=== PATIENT | female | born 1950 | race Caucasian/White ===

== ENCOUNTER → 2017-09-13 | Outpatient (CLI) | payer MEDICARE, OTHER ==
[~2017-09-13] MED LIST: AMBIEN 10MG10 MG PO; AMBIEN 5MG TABLE5 MG PO; ATIVAN 1MG T1 MG/TAB PO; CARAFATE1 GM PO; DESYREL 100MG100 MG PO; ELAVIL50 MG PO; FLEXERIL10 MG PO; FLONASE NASAL S16 GM NS; FOSAMAX; LORAZEPAM0.5 MG PO; MOBIC7.5 M1 PO; MOTRIN 800800 MG/TAB PO; NORCO 325 MG-51 TAB PO; PERCOCET 325 MG1 TA2 PO; PROZAC 20MG20 MG PO; PROZAC40 MG PO; SYNTHROID0.075 MG/T PO; SYNTHROID0.1 MG PO; WELLBUTRIN XL150 MG PO
== END ==
LOC: COL.RAD 10:23
DX: G31.89 Other specified degenerative diseases of nervous system (principal); I67.82 Cerebral ischemia; Z86.73 Personal history of transient ischemic attack (TIA), and cerebral infarction without residual deficits

== ENCOUNTER → 2018-06-07 | Outpatient (CLI) | payer MEDICARE, OTHER | LOC: COL.RAD 12:18 | DX: M41.84 Other forms of scoliosis, thoracic region (principal); M47.815 Spondylosis without myelopathy or radiculopathy, thoracolumbar region ==

== ENCOUNTER 2018-06-26 03:17 | Observation (INO) | payer MEDICARE, OTHER ==
[~2018-06-26] VITALS: Ht 165.1 cm; Wt 63.6 kg
[2018-06-26 03:39] LABS: BASO % 0.3 % (0.0-2.0); EOS # 0.2 (0.0-0.7); GRAN # 11.8 (1.4-6.5); GRAN % 78.3 % (42.2-75.2); HEMATOCRIT 38.3 % (37.0-47.0); HEMOGLOBIN 12.5 g/dl (12.5-16.0); LYMPH % 13.2 % (20.0-51.0); MEAN CELL VOLUME 93 fl (80.0-100.0); MEAN CORPUSCULAR HEMOGLOBIN 31 pg (27.0-31.0); MEAN CORPUSCULAR HGB CONC 33 g/dl (33.0-37.0); MONO # 0.9 (0.1-0.6); MONO % 6.1 % (1.7-9.3); PLATELET COUNT 252 K/mm3 (130-400); REDCELL DISTRIBUTION WIDTH-CV 12.9 % (11.5-14.5)
[2018-06-26 03:43] LABS: INR 0.9 (0.8-3.0)
[2018-06-26 03:49] LABS: ALANINE AMINOTRANSFERASE 30 U/L (9-52); ALKALINE PHOSPHATASE 42 U/L (50-136); ANION GAP 4 mmol/L (7-16); AST,SGOT 24 U/L (15-37); BILIRUBIN,TOTAL 0.3 mg/dL (0.0-1.0); BLOOD UREA NITROGEN 16 mg/dL (7-17); CARBON DIOXIDE 32 mmol/L (22-30); CHLORIDE 103 mmol/L (98-107); CREATININE, serum 0.67 mg/dL (0.52-1.25); GLUCOSE 103 mg/dL (74-106); POTASSIUM 4.4 mmol/L (3.4-5.0); SODIUM 139 mmol/L (137-145); TOTAL PROTEIN 7.2 gm/dL (6.4-8.2)
[2018-06-26] MEDS ORDERED: ZOCOR 20MG20 MG PO (03:59)
[2018-06-26] MEDS ORDERED: CORGARD20 MG PO (04:00)
[2018-06-26] MEDS ORDERED: LEXAPRO 10MG10 MG PO (04:00)
[2018-06-26 04:01] LABS: TROPONIN-I < 0.012 ng/mL (0.000-0.034)
[2018-06-26 05:48] LABS: CHOLESTEROL RISK RATIO 2.9
[2018-06-26 06:19] LABS: TSH w REFLEX 4.54 uIU/mL (0.465-4.680)
[2018-06-26 06:40] VITALS: BP 114/43; PULSE 62; TEMP 99.1
[2018-06-26] MEDS ORDERED: PRINIVIL10 MG PO (10:29)
[2018-06-26] MEDS ORDERED: NAMENDA 10MG TA10 MG PO (10:30)
[2018-06-26 11:15] VITALS: BP 121/45; PULSE 61; TEMP 98.7
[2018-06-26 11:26] LABS: TSH w REFLEX 4.87 uIU/mL (0.465-4.680)
[2018-06-26 13:15] LABS: PH 7 (5-8); SQUAMOUS EPITHELIAL 0-2 /hpf; URINE APPEARANCE Clear; URINE BACTERIA None Seen /hpf; URINE BILIRUBIN Negative (NEGATIVE); URINE BLOOD Negative (NEGATIVE); URINE COLOR Yellow; URINE GLUCOSE Negative (NEGATIVE); URINE KETONE Negative (NEGATIVE); URINE LEUKOCYTE ESTERASE Trace (NEGATIVE); URINE NITRATE Negative (NEGATIVE); URINE PROTEIN(semi-quant) Negative (NEGATIVE); URINE RBC 0-2 /hpf; URINE UROBILINOGEN Negative (NEGATIVE)
[2018-06-26 13:17] LABS: COLLECTION METHOD CLEAN CATCH
[2018-06-26 15:57] VITALS: BP 135/40; PULSE 59; TEMP 98.4
[2018-06-26 20:12] VITALS: BP 135/42; PULSE 57; TEMP 98.1
[2018-06-27] VITALS (7 sets, daily range): BP systolic 111–135; BP diastolic 48–65; PULSE 56–76; TEMP 98.1–98.2
[2018-06-27 06:17] LABS: BASO % 0.4 % (0.0-2.0); EOS # 0.1 (0.0-0.7); EOS % 1.5 % (0-4.0); GRAN % 53.5 % (42.2-75.2); HEMOGLOBIN 11.5 g/dl (12.5-16.0); LYMPH # 1.9 (1.2-3.4); MEAN CELL VOLUME 94 fl (80.0-100.0); MEAN CORPUSCULAR HEMOGLOBIN 31 pg (27.0-31.0); MEAN CORPUSCULAR HGB CONC 33 g/dl (33.0-37.0); MEAN PLATELET VOLUME 10.2 fl (7.4-10.4); MONO # 0.5 (0.1-0.6); MONO % 8.3 % (1.7-9.3); PLATELET COUNT 211 K/mm3 (130-400); RED BLOOD COUNT 3.74 M/mm3 (4.10-5.30); REDCELL DISTRIBUTION WIDTH-CV 12.8 % (11.5-14.5)
[2018-06-27 06:26] LABS: CALCIUM 8.5 mg/dL (8.4-10.2); CREATININE, serum 0.61 mg/dL (0.52-1.25)
[2018-06-27] MEDS ORDERED: ZOCOR 20MG20 MG PO (09:57)
[2018-06-27] MEDS ORDERED: ASPIRIN E.C. 8181 MG PO (09:58)
== END 2018-06-27 10:54 | disposition home or self-care (01) ==
LOC: COL.ER 03:17 → MEDICAL 04:44
PROVIDERS: Emergency Medicine; Nurse Practitioner; Physician Assistant
DX: R07.9 Chest pain, unspecified (principal); I10 Essential (primary) hypertension; D72.829 Elevated white blood cell count, unspecified; Z66 Do not resuscitate; R09.89 Other specified symptoms and signs involving the circulatory and respiratory systems; Z82.49 Family history of ischemic heart disease and other diseases of the circulatory system; E78.5 Hyperlipidemia, unspecified; I07.1 Rheumatic tricuspid insufficiency; E03.9 Hypothyroidism, unspecified; Z86.73 Personal history of transient ischemic attack (TIA), and cerebral infarction without residual deficits; Z79.899 Other long term (current) drug therapy; Z87.891 Personal history of nicotine dependence; Z79.82 Long term (current) use of aspirin; Z23 Encounter for immunization
CPT/HCPCS: A9502; G0008; G0378; J1650; J2270; J2765; J2785; Q9967

== ENCOUNTER 2019-05-10 12:30 | Outpatient (RCR) | payer MEDICARE, OTHER | END 2019-07-22 | disposition home or self-care (01) | LOC: WSST | DX: R13.10 Dysphagia, unspecified (principal); R25.1 Tremor, unspecified ==

== ENCOUNTER → 2019-05-10 | Outpatient (CLI) | payer MEDICARE, OTHER ==
[~2019-05-10] MED LIST changes: +ASPIRIN E.C. 8181 MG PO; +CORGARD20 MG PO; +LEXAPRO 10MG10 MG PO; +NAMENDA 10MG TA10 MG PO; +PRINIVIL10 MG PO; +ZOCOR 20MG20 MG PO
== END ==
LOC: COL.RAD 12:25
DX: G20 Parkinson's disease (principal); R13.10 Dysphagia, unspecified

== ENCOUNTER → 2020-07-31 | Outpatient (CLI) | payer MEDICARE, OTHER | LOC: COL.LAB 08:00 → COL.CAR 08-05 08:30 → EDSTATUS 08-06 09:15 | DX: U07.1 COVID-19 (principal) ==

== ENCOUNTER 2020-10-07 10:11 | Day surgery (SDC) | payer MEDICARE, OTHER ==
[~2020-10-07] VITALS: Ht 165.1 cm; Wt 72.8 kg
[2020-10-07] VITALS (14 sets, daily range): BP systolic 114–145; BP diastolic 66–83; PULSE 78–100; TEMP 98
[2020-10-07 11:04] LABS: HEMOGLOBIN 13.4 g/dl (12.5-16.0); MEAN CELL VOLUME 94 fl (80.0-100.0); MEAN CORPUSCULAR HEMOGLOBIN 32 pg (27.0-31.0); MEAN CORPUSCULAR HGB CONC 34 g/dl (33.0-37.0); MEAN PLATELET VOLUME 9.4 fl (7.4-10.4); PLATELET COUNT 260 K/mm3 (130-400); RED BLOOD COUNT 4.24 M/mm3 (4.10-5.30); REDCELL DISTRIBUTION WIDTH-CV 13.8 % (11.5-14.5)
[2020-10-07 11:13] LABS: CALCIUM 9.5 mg/dL (8.4-10.2); CREATININE, serum 0.75 (0.52-1.25); POTASSIUM 4.4 mmol/L (3.4-5.0)
[2020-10-07] MEDS ORDERED: LEXAPRO20 MG PO (11:13)
[2020-10-07] MEDS ORDERED: ZOCOR 40MG40 MG PO (11:13)
[2020-10-07] MEDS ORDERED: AMBIEN 5MG TABLE5 MG PO (11:14)
[2020-10-07] MEDS ORDERED: WELLBUTRIN XL300 M1 PO (11:14)
[2020-10-07 11:15] LABS: PROTHROMBIN TIME 10.6 SECONDS (9.7-12.8)
[2020-10-07] MEDS ORDERED: ZESTRIL 20MG TA20 MG PO (11:15)
[2020-10-07 11:18] LABS: PARTIAL THROMBOPLASTIN TIME 30.3 SECONDS (26.0-37.0)
--- NOTE | 2020-10-07 13:30 | NUR ---
Rt groin venous access site remains slightly firm to palpation but no clear outline palpable. Assessment remains unchanged from pt's arrival back to [facility]. Rt pedal pulse remains strong. Dressing to rt groin remains clean, dry and intact.
--- NOTE | 2020-10-07 14:11 | NUR ---
Rt groin site remains unchanged with no additional hematoma formation, and dressing is clean, dry and intact.
--- NOTE | 2020-10-07 14:30 | NUR ---
Rt groin now firm to palpation with increased bruising noted to medial thigh and pt c/o increased pain to leg. Manual pressure applied. Lamberto, oil field laborer RN called to evaluate. Distal pulses remain strong.
--- NOTE | 2020-10-07 14:50 | NUR ---
Rt groin site becomes slightly less firm with manual pressure. Dr Alberto was notified by phone and orders for femstop application x2 hr were given. Device applied by BEBO Orantes with assistance of this nurse. Pedal pulses remain strong.
--- NOTE | 2020-10-07 14:56 | NUR ---
Report from Thomas Simmons.pt has femstop in place at 40.
--- NOTE | 2020-10-07 16:33 | NUR ---
Radial compression band removed,site observed clean,dry,and soft to tocuh.Gauze applied wrapped with coban.Will continue to monitor.
--- NOTE | 2020-10-07 16:58 | NUR ---
femstop pressure released at this time.Will continue to monitor.
--- NOTE | 2020-10-07 17:08 | NUR ---
Report to Thomas Rodriguez.
--- NOTE | 2020-10-07 18:45 | NUR ---
PT TO EXIT VIA WHEELCHAIR AT THIS TIME. PT CARE WAS ASSUMED BY THIS RN AT 1700 AT WHICH TIME FEM STOP TO RT FEM PUNCTURE WAS DEFLATED. PLAN TO MONITOR SITE FOR AT LEAST 1 HOUR FOR BLEEDING THEN DISCHARGE. RT WRIST SITE LOOKS GOOD, DRESSING CLEAN DRY AND INTACT. PT HAS BEEN UP AND AMBULATORY WITH STEADY GAIT, HAS BEEN ABLE TO VOID. PT C/O DISCOMFORT TO RT GROIN, BUT AREA REMAINS SOFT WITHOUT HEMATOMA. I REVIEWED DC INSTRUCTIONS R/T CARDIAC CATH AND MODERATE SEDATION WITH PT, AND REVIEWED F/U INSTRUCTIONS FROM DR. QUILES. PT VERBALIZED UNDERSTANDING. IV WAS DC'D WITH CATH INTACT. PT DENIED CONCERNS AT TIME OF DEPARTURE.
== END 2020-10-07 20:46 | disposition home or self-care (01) ==
LOC: COL.CAR 10:11
PROVIDERS: Internal Medicine Cardiovascular Disease
DX: I25.10 Atherosclerotic heart disease of native coronary artery without angina pectoris (principal); U07.1 COVID-19; E03.9 Hypothyroidism, unspecified; F41.9 Anxiety disorder, unspecified; F32.9 Major depressive disorder, single episode, unspecified; M19.90 Unspecified osteoarthritis, unspecified site; I10 Essential (primary) hypertension; G20 Parkinson's disease; Z86.73 Personal history of transient ischemic attack (TIA), and cerebral infarction without residual deficits; M79.7 Fibromyalgia; M81.0 Age-related osteoporosis without current pathological fracture; Z87.891 Personal history of nicotine dependence; Z79.82 Long term (current) use of aspirin
CPT/HCPCS: J1644; J2250; J3010; Q9967

== ENCOUNTER → 2021-02-10 | Outpatient (CLI) | payer MEDICARE, OTHER ==
[~2021-02-10] MED LIST changes: +LEXAPRO20 MG PO; +WELLBUTRIN XL300 M1 PO; +ZESTRIL 20MG TA20 MG PO; +ZOCOR 40MG40 MG PO
== END ==
LOC: COL.PUL 12:58
DX: R06.02 Shortness of breath (principal)

== ENCOUNTER → 2021-04-24 | Outpatient (CLI) | payer MEDICARE, OTHER | LOC: COL.PUL 12:44 | DX: R06.02 Shortness of breath (principal) | CPT/HCPCS: J7674 ==

== ENCOUNTER → 2021-12-02 | Outpatient (CLI) | payer MEDICARE, OTHER | LOC: COL.RAD 09:29 | DX: R91.1 Solitary pulmonary nodule (principal); J98.4 Other disorders of lung; K46.9 Unspecified abdominal hernia without obstruction or gangrene; K83.9 Disease of biliary tract, unspecified; S22.41XD Multiple fractures of ribs, right side, subsequent encounter for fracture with routine healing; Z90.49 Acquired absence of other specified parts of digestive tract ==

== ENCOUNTER 2023-10-12 11:47 | Inpatient (IN) | payer MEDICARE, OTHER ==
[~2023-10-12] VITALS: Ht 165.1 cm; Wt 59.5 kg
[~2023-10-12 11:47] MED LIST changes: +ROXICODONE 55 MG/TAB PO
[2023-10-12] MEDS ORDERED: NS 1,000 ML IV ONE ×2 (12:30→13:30)
[2023-10-12 12:39] LABS: BASO % 0.5 % (0.0-2.0); EOS # 0.1 K/mm3 (0.0-0.7); EOS % 0.8 % (0.0-4.0); GRAN # 5.7 K/mm3 (1.4-6.5); GRAN % 76.6 % (42.2-75.2); HEMATOCRIT 39.1 % (37.0-47.0); LYMPH # 1.2 K/mm3 (1.2-3.4); LYMPH % 15.7 % (20.0-51.0); MEAN CELL VOLUME 95 fl (80.0-100.0); MEAN CORPUSCULAR HEMOGLOBIN 32 pg (27-31); MEAN CORPUSCULAR HGB CONC 33 g/dl (33.0-37.0); MEAN PLATELET VOLUME 9.4 fl (7.4-10.4); MONO # 0.4 K/mm3 (0.1-0.6); MONO % 5.2 % (1.7-9.3); PLATELET COUNT 346 K/mm3 (130-400); REDCELL DISTRIBUTION WIDTH-CV 17.7 % (11.5-14.5)
[2023-10-12 12:55] LABS: ALBUMIN 3.4 gm/dL (3.4-4.8); BILIRUBIN,TOTAL 0.4 mg/dL (0.2-1.2); CALCIUM 8.9 mg/dL (8.4-10.2); CREATININE, serum 0.75 mg/dL (0.57-1.11); POTASSIUM 3.8 mmol/L (3.5-4.5); TOTAL PROTEIN 6.8 gm/dL (6.2-8.1)
[2023-10-12] MEDS ORDERED: ATIVAN 1MG T1 MG/TAB PO (13:24)
[2023-10-12 13:26] LABS: PH 6.5 (5.0-8.5); URINE APPEARANCE CLEAR (CLEAR/HAZY); URINE BLOOD NEGATIVE (NEGATIVE); URINE COLOR YELLOW (YELLOW); URINE GLUCOSE NEGATIVE (NEGATIVE); URINE KETONE NEGATIVE (NEGATIVE); URINE NITRATE NEGATIVE (NEGATIVE); URINE PROTEIN(semi-quant) NEGATIVE (NEGATIVE); URINE UROBILINOGEN 0.2 E.U/dL (0.2-1.0)
[2023-10-12] MEDS ORDERED: SYNTHROID0.05 MG/TA PO (13:27)
[2023-10-12] MEDS ORDERED: cefTRIAXone 2 G in Water For Injection,Sterile 20 ML IV ONE (13:30)
[2023-10-12] MEDS ORDERED: *Potassium Replacement Protocol MC SCH (13:45)
[2023-10-12 13:47] LABS: COLLECTION METHOD CLEAN CATCH
[2023-10-12] MEDS ORDERED: NS 1,000 ML IV SCH (15:00)
[2023-10-12 15:01] VITALS: BP 171/91; PULSE 78; TEMP 97.6
[2023-10-12 17:32] VITALS: BP_SYST 171
[2023-10-12 19:28] VITALS: BP 148/82; PULSE 85; TEMP 98.4
[2023-10-12 20:30] VITALS: BP_SYST 148
--- NOTE | 2023-10-12 20:30 | NUR ---
Initial shift assessment done- confused as to month/year/time, did know she was in the hospital. Denies pain. Very weak- up to BSC with heavy assist-Fall Risk- bed alarm on,,She does not use the call light even with being reminded. Tele on- NS. IV fluids of NS at 75cc/hr.
[2023-10-12] MEDS ORDERED: Zolpidem 5 MG TAB PO SCH (21:00)
[2023-10-12] MEDS ORDERED: Potassium Bicarbonate/Citrate 20 MEQ Effervescent TAB PO ONE (21:30)
[2023-10-12 23:19] VITALS: BP 118/71; PULSE 79; TEMP 98.2
[2023-10-13] VITALS (12 sets, daily range): BP systolic 118–168; BP diastolic 73–94; PULSE 74–87; TEMP 97.5–98.6
--- NOTE | 2023-10-13 06:04 | NUR ---
Did get about 4-5 hours of sleep last night-- up to BSC numerous times, voiding very light pale urine,, did do a post void bladder scan during the night and had 90cc PVR, IV fluids continue at 75cc/hr. Tele on. VSS.
[2023-10-13 07:03] LABS: BASO % 0.3 % (0.0-2.0); EOS # 0.1 K/mm3 (0.0-0.7); EOS % 1.7 % (0.0-4.0); GRAN # 4.1 K/mm3 (1.4-6.5); GRAN % 67.8 % (42.2-75.2); HEMOGLOBIN 11.9 g/dl (12.5-16.0); LYMPH # 1.4 K/mm3 (1.2-3.4); LYMPH % 23.3 % (20.0-51.0); MEAN CELL VOLUME 96 fl (80.0-100.0); MEAN CORPUSCULAR HEMOGLOBIN 32 pg (27-31); MEAN CORPUSCULAR HGB CONC 33 g/dl (33.0-37.0); MEAN PLATELET VOLUME 9.4 fl (7.4-10.4); MONO # 0.4 K/mm3 (0.1-0.6); MONO % 5.9 % (1.7-9.3); PLATELET COUNT 326 K/mm3 (130-400); RED BLOOD COUNT 3.76 M/mm3 (4.10-5.30); REDCELL DISTRIBUTION WIDTH-CV 17.9 % (11.5-14.5)
[2023-10-13 07:04] LABS: HEMATOCRIT 35.9 % (37.0-47.0)
[2023-10-13 07:29] LABS: ALBUMIN 2.9 gm/dL (3.4-4.8); ANION GAP 11 mmol/L (7-16); BLOOD UREA NITROGEN < 5 mg/dL (10-20); CALCIUM 8.1 mg/dL (8.4-10.2); CARBON DIOXIDE 21 mmol/L (23-31); CHLORIDE 108 mmol/L (98-107); CREATININE, serum 0.71 mg/dL (0.57-1.11); GLUCOSE 81 mg/dL (70-99); MAGNESIUM 1.8 mg/dL (1.6-2.6); PHOSPHOROUS 2.6 mg/dL (2.3-4.7); POTASSIUM 3.5 mmol/L (3.5-4.5); SODIUM 140 mmol/L (136-145)
[2023-10-13] MEDS ORDERED: *Potassium Replacement Protocol MC SCH (07:45)
[2023-10-13] MEDS ORDERED: Potassium Bicarbonate/Citrate 20 MEQ Effervescent TAB PO SCH (07:45)
--- NOTE | 2023-10-13 08:42 | NUR ---
PT LAYING AWAKE IN BED UPON WALKING IN THE ROOM.NS RUNNING @75 ML/HR.VERBILIZES SHE IS NOT IN PAIN.BREAKFAST TOLERTAED WELL.NO CONCERNS AT THE MOMENT.
[2023-10-13] MEDS ORDERED: LORazepam 1 MG TAB PO SCH (09:00)
[2023-10-13] MEDS ORDERED: buPROPion XL (24-HR) 150 MG TAB PO SCH (09:00)
[2023-10-13] MEDS ORDERED: Escitalopram 10 MG TAB PO SCH (09:00)
[2023-10-13] MEDS ORDERED: Lisinopril 20 MG TAB PO SCH (09:00)
--- NOTE | 2023-10-13 09:11 | NUR ---
Initial visit attempt; Patient 'Indisposed,' Rice Farmer left ASV Card letting patient know of the availability of Spiritual Care at our hospital along with wishing her God's blessings.
--- NOTE | 2023-10-13 09:46 | NUR ---
NS RUNNING @75ML/HR DC/D PER ORDERS.INT PATENT ACCESED NO REDNESS OR SWELLING NOTED
--- NOTE | 2023-10-13 12:55 | NUR ---
PATIENT HAD A FALL WHILE SITTING ON THE BEDSIDE COMMODE. PATIENT STATED SHE WANTED TO REACH FOR THE GREEN WIPES WHICH WERE LOCATED ON THE SINK. FALL WAS UNWITNESSED. PATIENT FOUND ON THE FLOOR NEXT TO BED. SHE STATES THAT SHE DID NOT HIT HER HEAD AND IS NOT IN ANY PAIN. VSS. PROVIDER HAS BEEN NOTIFIED.
--- NOTE | 2023-10-13 13:00 | NUR ---
POST FALL ASSESSMENT AND VITAL SIGNS COMPLETE
--- NOTE | 2023-10-13 13:02 | NUR ---
rider ticket worker met with patient to discuss discharge planning. Patient lives in [place] with her , Gil, P# [phone]. PCP is [facility], Pharmacy is [facility]. No issues affording medications. DPOA-HC is Gil, DME is oxygen. Patient uncertain on what company the oxygen is through. Reports to be independent with ADLS. Patient or her transports her to and from appointments. SW presented Medicare.gov list of options for SNF and home health. Patient declined SNF but was open to Home Health. SW will follow up. Discharge plan: Home
--- NOTE | 2023-10-13 20:30 | NUR ---
Initial shift assessment done- is more alert than last night,, was oriented to yesr/time, just off with the month,, was able to tell me how many years shes been , where they live etc,, able to carry on a good conversation, states overall she is feeling better,, when up to BSC though is extremely weak- needs 2 assists, is a little nauseated and will call Samira MURCIA for some medication for this,, also has had one loose stool and had a few on days so will let samira know about that also-- bed alarm on. Fall Risk.
[2023-10-13] MEDS ORDERED: Ondansetron 4 MG/2 ML VIAL IV PRN (21:00)
[2023-10-14] VITALS (13 sets, daily range): BP systolic 131–176; BP diastolic 81–91; PULSE 74–79; TEMP 97.6–98.3
--- NOTE | 2023-10-14 06:00 | NUR ---
Quiet night, did get some good sleep, Up to BSC 3-4 times during the night- voiding clear yellow urine-- no stool this shift. VSS
--- NOTE | 2023-10-14 07:57 | NUR ---
PATIENT LAYING AWAKE IN BED THIS MORNING ,ASSESMENT COMPLETE,VERBILIZES SHE IS NOT IN ANY PAIN AND DENIES ANY SOB . ALERT TO NAME,PLACE AND BUT NOT TO MONTH AND YEAR.STATES SHE NO LONGER FEEL NAUSEATED.
[2023-10-14 09:44] LABS: ALBUMIN 2.9 gm/dL (3.4-4.8); ANION GAP 9 mmol/L (7-16); BLOOD UREA NITROGEN < 5 mg/dL (10-20); CARBON DIOXIDE 23 mmol/L (23-31); CHLORIDE 106 mmol/L (98-107); CREATININE, serum 0.65 mg/dL (0.57-1.11); GLUCOSE 88 mg/dL (70-99); MAGNESIUM 1.9 mg/dL (1.6-2.6); PHOSPHOROUS 2.3 mg/dL (2.3-4.7); POTASSIUM 3.6 mmol/L (3.5-4.5); SODIUM 138 mmol/L (136-145)
[2023-10-14 09:57] LABS: BASO % 0.4 % (0.0-2.0); EOS # 0.1 K/mm3 (0.0-0.7); EOS % 1.8 % (0.0-4.0); GRAN # 3.7 K/mm3 (1.4-6.5); GRAN % 74.6 % (42.2-75.2); HEMOGLOBIN 11.8 g/dl (12.5-16.0); LYMPH # 0.8 K/mm3 (1.2-3.4); MEAN CELL VOLUME 96 fl (80.0-100.0); MEAN CORPUSCULAR HEMOGLOBIN 32 pg (27-31); MEAN CORPUSCULAR HGB CONC 33 g/dl (33.0-37.0); MEAN PLATELET VOLUME 9.4 fl (7.4-10.4); MONO # 0.3 K/mm3 (0.1-0.6); MONO % 6.4 % (1.7-9.3); PLATELET COUNT 286 K/mm3 (130-400); RED BLOOD COUNT 3.69 M/mm3 (4.10-5.30)
[2023-10-14 09:58] LABS: HEMATOCRIT 35.4 % (37.0-47.0)
[2023-10-14] MEDS ORDERED: *Potassium Replacement Protocol MC SCH (10:00)
[2023-10-14] MEDS ORDERED: Potassium Bicarbonate/Citrate 20 MEQ Effervescent TAB PO SCH (10:00)
--- NOTE | 2023-10-14 10:09 | NUR ---
Initial visit; Patient thanked Tube Room Cashier for looking in on her and offering God's blessings and to keep her in Tube Room Cashier's prayers. Patient's husban offers support and thanked Tube Room Cashier as well.
--- NOTE | 2023-10-14 11:23 | NUR ---
Pt to MRI via w/c.
[2023-10-14 16:29] LABS: COLLECTION METHOD CLEAN CATCH
[2023-10-14 16:34] LABS: URINE APPEARANCE CLEAR (CLEAR/HAZY); URINE BLOOD NEGATIVE (NEGATIVE); URINE COLOR YELLOW (YELLOW); URINE GLUCOSE NEGATIVE (NEGATIVE); URINE KETONE NEGATIVE (NEGATIVE); URINE NITRATE NEGATIVE (NEGATIVE); URINE PROTEIN(semi-quant) NEGATIVE (NEGATIVE)
--- NOTE | 2023-10-14 19:07 | NUR ---
Patient reports that she is feeling better overall. Alert. Oriented to self, and place but unable to remember the year. 1 assist to the BSC frequently (q 30 min) throughout the day with little output or none at all. UA collected and negative. Order rec'd for Ditropan which has been administered. Had MRI L Spine and brain today. Removed earring to right ear and sent home wtih her , Antolin. Unable to remove earring to the left ear. Denies pain or needs.
--- NOTE | 2023-10-14 21:00 | NUR ---
PT RESTING IN BED. ALARM SOUNDING. PT TRYING TO GET UP TO [facility] BY HERSELF. PT FORGETFUL. HAS SIGNIFICANT TREMORS. VERY WEAK AND UNSTEADY. PT HAS DIFFICULTY FOLLOWING DIRECTIONS. PT HAS FREQUENT VOIDS. STARTED ON DITROPAN. DENIES ANY PAIN OR DYSURIA. ASSISTED BACK TO BED. REQUIRES ASSISTANCE WITH STRIAGHTENING UP IN BED. TRIED LAYING CROSS WAYS IN BED. CALL LIGHT IN REAC. BEDALARM SET.
--- NOTE | 2023-10-14 22:31 | NUR ---
ASSISTED PT UP TO BSC. UNABLE TO VOID. WILL BLADDER SCAN.
--- NOTE | 2023-10-14 22:42 | NUR ---
PT BLADDER SCANNED POST VOID RESIDULE [id number].
[2023-10-15] VITALS (13 sets, daily range): BP systolic 158–178; BP diastolic 70–92; PULSE 49–75; TEMP 97.4–98.5
[2023-10-15] MEDS ORDERED: Rivaroxaban 15 MG TAB PO SCH (08:00)
[2023-10-15 09:16] LABS: BASO % 0.4 % (0.0-2.0); EOS # 0.1 K/mm3 (0.0-0.7); EOS % 1.3 % (0.0-4.0); GRAN # 4.4 K/mm3 (1.4-6.5); GRAN % 77.9 % (42.2-75.2); HEMOGLOBIN 12.6 g/dl (12.5-16.0); LYMPH # 0.8 K/mm3 (1.2-3.4); LYMPH % 14.5 % (20.0-51.0); MEAN CELL VOLUME 97 fl (80.0-100.0); MEAN CORPUSCULAR HEMOGLOBIN 31 pg (27-31); MEAN CORPUSCULAR HGB CONC 32 g/dl (33.0-37.0); MONO # 0.3 K/mm3 (0.1-0.6); PLATELET COUNT 239 K/mm3 (130-400); RED BLOOD COUNT 4.03 M/mm3 (4.10-5.30)
[2023-10-15 09:42] LABS: ANION GAP 8 mmol/L (7-16); BLOOD UREA NITROGEN < 5 mg/dL (10-20); CALCIUM 8.4 mg/dL (8.4-10.2); CARBON DIOXIDE 24 mmol/L (23-31); CHLORIDE 104 mmol/L (98-107); CREATININE, serum 0.65 mg/dL (0.57-1.11); GLUCOSE 95 mg/dL (70-99); PHOSPHOROUS 2.6 mg/dL (2.3-4.7); POTASSIUM 3.9 mmol/L (3.5-4.5); SODIUM 136 mmol/L (136-145)
--- NOTE | 2023-10-15 11:49 | NUR ---
Assessment complete. Pt alert- oriented to self, , and month. Unable to remember what year it is. Pt continues to request BSC several times an hour and only voiding small amounts of urine. Was incontinent of small amount of loose stool this morning- specimen sent to lab for GI panel, which was negative. Patient's Antolin at bedside.
[2023-10-15] MEDS ORDERED: Potassium Bicarbonate/Citrate 20 MEQ Effervescent TAB PO ONE (14:30)
[2023-10-15] MEDS ORDERED: *Potassium Replacement Protocol MC SCH (14:30)
[2023-10-15] MEDS ORDERED: Folic Acid 1 MG TAB PO SCH (15:31)
[2023-10-15] MEDS ORDERED: Thiamine 100 MG TAB PO SCH (15:31)
--- NOTE | 2023-10-15 17:28 | NUR ---
Pt's family reported that patient drinks approximately 2 boxes of wine weekly and also takes it with her ambien and believes that is that is the reason she has had multiple falls. Ativan was placed on hold yesterday. Ambien d/c'd today. CIWA protocol now in place q2 hours, with 1600 CIWA scoring 1. Pt continues to get up to BSC frequently with little or no output. and granddaughter at bedside. Denies pain or needs at this time.
[2023-10-15] MEDS ORDERED: Propranolol 20 MG TAB PO SCH (17:36)
--- NOTE | 2023-10-15 18:31 | NUR ---
Dr. Rivas notified of high blood pressure readings. Order rec'd- Inderal administered.
[2023-10-15] MEDS ORDERED: hydrALAZINE 20 MG/ML 1 ML VIAL IV PRN (22:30)
[2023-10-16] VITALS (19 sets, daily range): BP systolic 127–188; BP diastolic 65–125; PULSE 54–68; TEMP 97.3–98
--- NOTE | 2023-10-16 00:59 | NUR ---
PT ALERT AND ORIENTED, HUSAND AND OTHER FAMILY MEMBER IN THE ROOM AT SHIFT CHANGE. USES BSC R/T WEAKNESS AND URGENCY. VITAL SIGNS STABLE, HEART RATE NSR TO [place] ON TELE. INT TO RIGHT FA PATENT. ON CIWA PROTOCOL. ASSESSED ,MEDICATED PER EMAR. PAIN RATED 6/10 IN HER STOMACH, MEDICATED. DENIES FURTHER NEED AT THIS TIME.CALL LIGHT WITHIN REACH, BED ALARM SET.
--- NOTE | 2023-10-16 06:15 | NUR ---
PT WAS NOT ABLE TO SLEEP WELL OVERNIGHT. IS ON CIWA PROTOCOL AND OVERNIGHT SCORED 8 AT THE HIGHEST AND 2 THE LOWEST. PT ISNT ABLE TO FOLLOW COMMANDS AND GETS AGGITATED WHEN ASKED TO DO SIMPLE TASKS LIKE ROLL OVER IN THE BED OR NOT GET OUT OF BED WITHOUT ASSISTANCE. THIS MORNING SCORED AN 8 ON CIWA PROTOCOL RIGHT AT SHIFT CHANGE R/T MODERATE TREMORS AND ANXIETY. TWIN MARTINI. NOTIFIED, ORDERS TO FOLLOW.
[2023-10-16] MEDS ORDERED: LORazepam 2 MG/ML 1 ML VIAL IV PRN (06:30)
[2023-10-16] MEDS ORDERED: chlordiazePOXIDE 25 MG CAP PO PRN (06:30)
[2023-10-16 06:42] LABS: BASO % 0.3 % (0.0-2.0); EOS # 0.1 K/mm3 (0.0-0.7); EOS % 0.7 % (0.0-4.0); GRAN # 6.9 K/mm3 (1.4-6.5); GRAN % 80.1 % (42.2-75.2); HEMATOCRIT 40.2 % (37.0-47.0); HEMOGLOBIN 13.2 g/dl (12.5-16.0); LYMPH # 1.1 K/mm3 (1.2-3.4); LYMPH % 12.4 % (20.0-51.0); MEAN CELL VOLUME 96 fl (80.0-100.0); MEAN CORPUSCULAR HEMOGLOBIN 32 pg (27-31); MEAN CORPUSCULAR HGB CONC 33 g/dl (33.0-37.0); MEAN PLATELET VOLUME 9.7 fl (7.4-10.4); MONO # 0.5 K/mm3 (0.1-0.6); MONO % 5.6 % (1.7-9.3); RED BLOOD COUNT 4.18 M/mm3 (4.10-5.30); REDCELL DISTRIBUTION WIDTH-CV 18.2 % (11.5-14.5)
[2023-10-16 06:52] LABS: PLATELET COUNT 365 K/mm3 (130-400)
[2023-10-16 07:06] LABS: CALCIUM 8.6 mg/dL (8.4-10.2); CREATININE, serum 0.59 mg/dL (0.57-1.11); MAGNESIUM 2.1 mg/dL (1.6-2.6); PHOSPHOROUS 2.1 mg/dL (2.3-4.7); POTASSIUM 3.8 mmol/L (3.5-4.5)
[2023-10-16] MEDS ORDERED: *Potassium Replacement Protocol MC SCH (07:30)
[2023-10-16] MEDS ORDERED: Potassium Bicarbonate/Citrate 20 MEQ Effervescent TAB PO ONE (07:30)
[2023-10-16] MEDS ORDERED: Potassium Chloride 100 ML IV SCH (07:30)
--- NOTE | 2023-10-16 09:25 | NUR ---
Assessment complete. A/O to self, , place but not year. Pt x1 assist to BSC. Denies pain. Slight tremor noted-see CIWA for scoring. On RA. Family at bedside.
--- NOTE | 2023-10-16 19:31 | NUR ---
PT ALERT AND ORIENTED, HAVING SOME NAUSEA AND HTN, MEDICATED. AND FAMILY MEMBERS AT THE BEDSIDE BROUGHT HER DINNER. MEDICATED PER EMAR, WELL PRN NAUSEA. EATING OK ADVISED TO EAT SLOW SO TO NOT THROW IT BACK UP. ASSESSED, GETTING UP WITH ONE PERSON ASSIST TO BSC R/T WEAKNESS AND FORGETFULNESS. CALL LIGHT WITHIN REACH, BED ALARM ENGAGED.
[2023-10-17] VITALS (17 sets, daily range): BP systolic 106–177; BP diastolic 53–76; PULSE 51–63; TEMP 97.5–98.1
[2023-10-17 06:28] LABS: BASO % 0.3 % (0.0-2.0); EOS # 0.1 K/mm3 (0.0-0.7); GRAN # 6.3 K/mm3 (1.4-6.5); GRAN % 70.5 % (42.2-75.2); HEMATOCRIT 38.7 % (37.0-47.0); HEMOGLOBIN 12.4 g/dl (12.5-16.0); LYMPH # 1.7 K/mm3 (1.2-3.4); LYMPH % 19.5 % (20.0-51.0); MEAN CELL VOLUME 97 fl (80.0-100.0); MEAN CORPUSCULAR HEMOGLOBIN 31 pg (27-31); MEAN CORPUSCULAR HGB CONC 32 g/dl (33.0-37.0); MEAN PLATELET VOLUME 9.8 fl (7.4-10.4); MONO # 0.7 K/mm3 (0.1-0.6); MONO % 7.4 % (1.7-9.3); PLATELET COUNT 321 K/mm3 (130-400); RED BLOOD COUNT 3.98 M/mm3 (4.10-5.30); REDCELL DISTRIBUTION WIDTH-CV 18.1 % (11.5-14.5)
[2023-10-17 06:42] LABS: CALCIUM 8.9 mg/dL (8.4-10.2); CREATININE, serum 0.7 mg/dL (0.57-1.11); MAGNESIUM 2.1 mg/dL (1.6-2.6); PHOSPHOROUS 2.9 mg/dL (2.3-4.7); POTASSIUM 3.9 mmol/L (3.5-4.5)
[2023-10-17] MEDS ORDERED: Potassium Bicarbonate/Citrate 20 MEQ Effervescent TAB PO ONE (07:45)
--- NOTE | 2023-10-17 08:35 | NUR ---
Patient is sitting up in bed, alert and oriented, states some pain in her lower back, but feels better today. Assessment complted, meds given. She just finished her breakfast. at the bedside. No further needs at this time. Call light within reach.
[2023-10-17] MEDS ORDERED: Acetaminophen 500 MG TAB PO PRN (09:00)
--- NOTE | 2023-10-17 11:03 | NUR ---
lumber yard worker was notified patient is wanting SNF placement for rehab. Patient [facility]. SW secure emailed referral to all three facilities. SW updated Dr. Rivas.
--- NOTE | 2023-10-17 14:20 | NUR ---
SW was notified by [facility] that they are unable to accept patient.
--- NOTE | 2023-10-17 16:40 | NUR ---
Pt's son asks to talk with Dr. Rivas outside of patient's room to provide more information about patient's alcohol situation. Son's name Kwame Lewis ([phone]). Contacto phone provided to Dr. Rivas.
--- NOTE | 2023-10-17 20:30 | NUR ---
Initial shift assessment done- denies pain, denies any agitation/anxiety,, alert/overall oriented, gets a little off with exact day/time, knows month/year,, VSS, B/P borderline low 106/54,, Did let Sunny MURCIA know of B/P and will hold Inderal for tonight. bed alarm on-- Up to bathroom with one assist/walker.
[2023-10-18] VITALS (18 sets, daily range): BP systolic 102–175; BP diastolic 54–78; PULSE 54–69; TEMP 97.5–98.2
--- NOTE | 2023-10-18 05:18 | NUR ---
Slept well all night- VSS, B/P stable all night, Up to bathroom a couple times- still weak gait but able to walk to bathroom with assist as opposed to BSC at bedside.
--- NOTE | 2023-10-18 13:18 | NUR ---
door worker was notified [place] [facility] would like updates after clinical roundings today. STEPHANIE met with the interdisciplinary team and was notified by Dr. Rivas that patient's has been sneaking alcohol to patient to prevent withdrawal symptoms. Dr. Rivas spoke with the regarding this and he understands he cannot bring alcohol to patient. STEPHANIE sent updates to [facility] and updated them on the above information. STEPHANIE contacted [facility] whom expressed they would have to re-review patient referral on Tuesday due to patient being on detox protocol. STEPHANIE updated Dr. Rivas on this. Discharge plan: SNF
--- NOTE | 2023-10-18 16:37 | NUR ---
woodworker helper was notified that [facility] is able to accept patient. [facility] is still considering patient and patient would like to go to [facility] is possible. Discharge plan: SNF
--- NOTE | 2023-10-18 20:30 | NUR ---
Initial shift assessment done- denies pain/SOB, states no nausea, denies any anxiety, Tele on-SR,, Up to bathroom with assist- still weak,, back to bed,, bed alarm on,, watching TV - no requests.
[2023-10-19] VITALS (16 sets, daily range): BP systolic 100–149; BP diastolic 51–77; PULSE 55–60; TEMP 97.5–98.6
--- NOTE | 2023-10-19 06:03 | NUR ---
Up to bathroom numerous times to void last night-- also did have some small amounts loose stool with each time up to bathroom, did not sleep much last night- VSS
--- NOTE | 2023-10-19 08:24 | NUR ---
Patient is reting in bed, alert and orineted x 4, states she misses her dog and her cat and would like to go home today. States no pain at this time, and she feels her strenght is better today. Assessment completed, meds given, no further needs at this time. Call light within reach.
--- NOTE | 2023-10-19 16:29 | NUR ---
merchandise worker attended clinical rounding with interdisciplinary team. Patient is medically ready for discharge. STEPHANIE confirmed that [facility] was able to accept patient but unable to admit until tomorrow, 10/19/23. STEPHANIE sent clinical updates to [facility]. STEPHANIE was notified the family would like to transport patient. STEPHANIE confirmed with [facility] that was okay. STEPHANIE met with patient and family members whom agreed that around 10-11 am would work for them to transport if that works for discharge with the hospital staff tomorrow. STEPHANIE confirmed that time works for [facility] as well. Discharge plan: [facility] SNF
--- NOTE | 2023-10-19 18:52 | NUR ---
Report given to BEBO Shine.
[2023-10-19] MEDS ORDERED: Potassium Bicarbonate/Citrate 20 MEQ Effervescent TAB PO ONE (19:30)
--- NOTE | 2023-10-19 20:20 | NUR ---
Patient assessed around 1919. Alert and oriented to self. Aware that it is september, thinks it is 2002, and that she is in a hospital in [place]. Denies having pain and discomfort. Assisted to bedside commode, one assist with use of walker and gait belt. Gait unsteady. Patient aware of plan to discharge to [facility] tomorrow. Voices no questions, needs, or concerns at this time. In bed with call light within reach. High fall risk precautions in place. Bed alarm on.
[2023-10-20 00:24] VITALS: BP_SYST 109
[2023-10-20 03:28] VITALS: BP 106/60; PULSE 61; TEMP 97.4
[2023-10-20 04:10] VITALS: BP_SYST 106
--- NOTE | 2023-10-20 05:36 | NUR ---
Patient has not scored high enough on detox protocol to receive PRN Ativan. Denies having pain and discomfort. Voices no questions, needs, or concerns at this time. In bed with call light within reach. High fall risk precautions in place. Bed alarm on.
[2023-10-20 06:46] VITALS: BP 128/62; PULSE 58; TEMP 98.6
[2023-10-20] MEDS ORDERED: INDERAL 10MG10 MG PO (08:25)
[2023-10-20] MEDS ORDERED: DITROPAN XL 5MG5 M1 PO (08:26)
[2023-10-20] MEDS ORDERED: MELATIN 3 MG-11 TAB PO (08:27)
[2023-10-20] MEDS ORDERED: ATIVAN 0.50.5 MG/TAB PO (08:27)
[2023-10-20] MEDS ORDERED: TYLENOL 325MG325 MG PO (09:51)
--- NOTE | 2023-10-20 10:26 | NUR ---
Patient alert and oriented x4. Shift assessment complete, no new variances noted. Patient ambulating with x1 assistance and walker/gait belt to bathroom. Gait is slightly unsteady due to balance issues. IV discontinued to left forearm with no complications. Telemetry off. Patient assisted with dressing into change of clothes. Waiting for discharge finalization to [facility] at this time.
--- NOTE | 2023-10-20 10:42 | NUR ---
balancing machine set up worker was notified by [facility] that patient does not have a skillable diagnosis. [facility] contacted patient's whom reports he was willing to pay a week of private pay at their facility for $294 per day. STEPHANIE contacted patient's and expressed he was okay with this if he has to and would transfer her at 10 am. STEPHANIE contacted [facility] as they were able to accept patient. [facility] reports they had their administration and corporate review patient's chart and determined she is skillable for Medicare to cover patient's stay. STEPHANIE met with the family and patient and they would prefer [facility] over [facility]. STEPHANIE confirmed [facility] is able to accept patient today. STEPHANIE Vasquez updated [facility] on patient's choice. STEPHANIE reviewed the important message from Medicare. Patient understood and signed the form. STEPHANIE made a copy, placed original in chart and provided the copy to the patient. STEPHANIE secure emailed clinical updates and discharge orders to [facility]. Discharge plan: [facility]
--- NOTE | 2023-10-20 11:17 | NUR ---
Patient transferred to [facility]. Transfer paperwork sent with family. Patient escorted to family car via wheelchair, assisted into car. Belongings sent with . Report called to [facility] facility at [phone].
== END 2023-10-20 11:10 | DRG 552 ==
LOC: COL.ER 11:47 → MEDICAL 13:41
PROVIDERS: Family Medicine; Internal Medicine; ADMIT Internal Medicine
DX: M48.061 Spinal stenosis, lumbar region without neurogenic claudication (principal); S32.019D Unspecified fracture of first lumbar vertebra, subsequent encounter for fracture with routine healing; I10 Essential (primary) hypertension; I08.1 Rheumatic disorders of both mitral and tricuspid valves; H02.401 Unspecified ptosis of right eyelid; F10.10 Alcohol abuse, uncomplicated; R35.0 Frequency of micturition; E03.9 Hypothyroidism, unspecified; F32.A Depression, unspecified; E78.5 Hyperlipidemia, unspecified; X58.XXXD Exposure to other specified factors, subsequent encounter; Z79.890 Hormone replacement therapy; Z98.2 Presence of cerebrospinal fluid drainage device; Z90.49 Acquired absence of other specified parts of digestive tract; Z90.710 Acquired absence of both cervix and uterus; Z91.81 History of falling
CPT/HCPCS: G0378; J0360; J0696; J2405; J7030; Q3014